=== PATIENT | female | born 1980 | race Caucasian/White ===

== ENCOUNTER → 2021-03-27 17:14 | Outpatient (CLI) | payer SELFPAY ==
[2021-03-27 17:57] LABS: Add Manual Diff / Slide Review NO; Basophils Absolute Auto 0 /uL (0-100); Basophils Percent Auto 0.2 % (0-2); Eosinophils Absolute Auto 100 /uL (0-450); Eosinophils Percent Auto 0.9 % (2-4); Hematocrit 36.1 % (36-46); Hemoglobin 12.4 g/dL (12.0-16.0); Lymphocytes Absolute Auto 1700 /uL (1100-4500); Lymphocytes Percent Auto 22.5 % (25-40); Mean Corpuscular HGB Conc 34.2 % (30-36); Mean Corpuscular Hemoglobin 28.5 PG (26-34); Mean Corpuscular Volume 83.3 fL (80-100); Monocytes Absolute Auto 400 /uL (0-900); Monocytes Percent Auto 5.5 % (3-14); Neutrophils Absolute Auto 5200 /uL (1500-7000); Neutrophils Percent Auto 70.9 % (50-75); Platelet Count 162 X10^3/uL (150-400); Red Blood Cell Count 4.34 X10^6/uL (4.0-5.2); Red Cell Distribution Width 15.2 % (11.6-14.8); White Blood Cell Count 7.4 X10^3/uL (4.5-11.0)
== END ==
PROVIDERS: Referring Provider Obstetrics & Gynecology; Visit Provider Obstetrics & Gynecology
DX: Z34.81 Encounter for supervision of other normal pregnancy, first trimester (principal)
CPT/HCPCS: 36415; 85025; 86850; 86900; 86901

== ENCOUNTER → 2021-04-30 10:42 | Outpatient (CLI) | payer SELFPAY ==
--- NOTE | 2021-04-30 10:44 | DI.US.S_ITS ---
PROCEDURE: US OB >= 14 WEEKS FETUS INDICATIONS: ANATOMY OUTSIDE/PRIOR DATING DATA: Last menstrual period (LMP): Known. LMP-based estimated date of delivery (DAWIT): Unknown. First dating scan (date and location): 11 week 4 day. Estimated date of delivery (DAWIT) from first dating scan: 02/27/2021. TECHNIQUE: Real-time scanning was performed of the fetus, with image documentation and biometric measurements. Endovaginal scanning: None COMPARISON: [facility], OB >= 14 WEEKS FETUS, 03/27/2021, 17:00. [facility], OB >= 14 WEEKS FETUS, 04/23/2021, 17:09. FINDINGS: General: A single living intrauterine gestation is present. Presentation: Breech. Placenta: Placental position is posterior , without previa. Amniotic fluid index: 12.8 cm, normal range is 5-24 cm. heart rate: 137 beats per minute. Maternal cervical canal: 3.2 cm long. Normal lower limit is 2.5 cm. biometrics: Biparietal diameter: 4.7 cm, 20 week 1 day Head circumference: 17.8 cm, 20 week 2 day Abdominal circumference: 16.5 cm, 21 week 4 day Femur length: 3.2 cm, 20 week 0 day Clinically estimated gestational age: 20 week 3 day Composite gestational age from present scan: 20 week 4 day Estimated weight and percentile: 373 g, 62 percentile Anatomic survey: Neuro: Ventricles are non-dilated at less than 10 mm. Cisterna magna is normal at 3-11 mm. Cerebellum is normal in size and morphology. Nuchal skin fold: Normal at less than 6 mm between 14-21 weeks gestational age. Face: Nose and lips, facial profile are normal. Spine: No evidence for spina bifida. Heart: 4-chambered heart is present, with normal ventricular outflow tracts. Diaphragm: Diaphragm is intact. Stomach: Left-sided stomach is present. Kidneys: No hydronephrosis. Normal is less than 5 mm in 2nd trimester, less than 7 mm in 3rd trimester. Cord: 3-vessel cord has orthotopic insertion. Bladder: Normal in size. Extremities: All 4 extremities identified. IMPRESSION: Single live intrauterine consistent with 20 week 4 day gestation. Unremarkable anatomy Approved by: Fernando Carreon M.D. on 04/30/2021 at 13:21
== END ==
PROVIDERS: Referring Provider Obstetrics & Gynecology; Visit Provider Obstetrics & Gynecology
DX: Z34.82 Encounter for supervision of other normal pregnancy, second trimester (principal); Z3A.20 20 weeks gestation of pregnancy
CPT/HCPCS: 76811

== ENCOUNTER → 2021-05-29 11:14 | Outpatient (CLI) | payer SELFPAY ==
[2021-05-29 13:29] LABS: Hematocrit 32.3 % (36-46); Hemoglobin 11.3 g/dL (12.0-16.0)
[2021-05-29 14:08] LABS: GTT (PREG) 1 Hour PP 50gm Dose 98 mg/dL (76-139)
== END ==
PROVIDERS: Referring Provider Obstetrics & Gynecology; Visit Provider Obstetrics & Gynecology
DX: Z34.82 Encounter for supervision of other normal pregnancy, second trimester (principal); Z3A.24 24 weeks gestation of pregnancy
CPT/HCPCS: 36415; 82950; 85014; 85018

== ENCOUNTER → 2021-08-20 12:24 | Outpatient (CLI) | payer SELFPAY ==
[2021-08-21 10:19] LABS: Strep Grp B PCR NEG for Grp B Strep
== END ==
PROVIDERS: PCP Obstetrics & Gynecology; Visit Provider Obstetrics & Gynecology
DX: Z36.85 Encounter for antenatal screening for Streptococcus B (principal); Z3A.37 37 weeks gestation of pregnancy
CPT/HCPCS: 87653

== ENCOUNTER 2021-09-09 10:29 | Outpatient (CLI) | payer SELFPAY | END 2021-09-09 11:49 | disposition home or self-care (01) | LOC: OB 09-10 06:44 | PROVIDERS: PCP Obstetrics & Gynecology; Referring Provider Obstetrics & Gynecology; Visit Provider Obstetrics & Gynecology | DX: O09.523 Supervision of elderly multigravida, third trimester (principal); Z3A.39 39 weeks gestation of pregnancy | CPT/HCPCS: 59025; G0378; G0379 ==

== ENCOUNTER 2021-09-13 08:22 | Outpatient (CLI) | payer SELFPAY ==
--- NOTE | 2021-09-13 08:37 | PM.OBTRLD ---
Visit Information Visit Information Date of evaluation: 09/13/21 Primary OB Provider: Laura Dey On-call OB Provider: Rayo Colin Reason for Evaluation: Yes non-stress test [facility] Medical History (Updated 07/14/21 @ 16:13 by Laura Dey MD) Advanced maternal age (AMA), 40 years or greater Infertility (~2002) Ovarian cyst (~2007) Surgical History (Updated 02/26/21 @ 12:33 by Elvi Chavez, RN) History of third molar tooth extraction Status post dilation and curettage (~09/2012) Family History (Updated 02/26/21 @ 12:42 by Elvi Chavez, RN) Mother Depression Hypertension Father H/O thyroidectomy Grandmother Hypertension Cancer Grandfather Congestive heart failure Arthritis Grandmother Dementia Unknown family medical history Grandfather Unknown family medical history Social History marital status: number of children: 3 household members: spouse and children (2 10 y.o. adopted children & her son Chriss. ) lives independently: Yes caregiver/support person: No housing: house pets and animals: Yes (1 cat, 1 dog: aware/safe.) education level: college (Music education. ) occupational status: unemployed ([employer], also [email or web address] current occupational exposures/hazards: No maico/protestant: Islam special maico needs: Yes (Does not believe in or termination.) seatbelt use: always do you feel safe at home: Yes Smoking Status: Never smoker second hand exposure: No alcohol intake: never substance use type: does not use during the past year weight has: remained stable well-balanced diet: daily or most days daily servings fruits/ve-4 (At least 2) caffeine: Yes (Chocolate. Occasional part of a frappucino. ) Type(s) of exercise: occasional exercise (Follows a video with exercises, only occasionally lately. ) frequency: does not exercise Evaluation Evaluation Baseline heart rate: 125 Variability: Moderate (11-25) monitor accelerations: Present Monitor Decelerations: Episodic Category of Tracing: Reactive Diagnosis, Plan/Disposition Plan/Disposition Plan: Scheduled for induction 09/15. OB Disposition: home
== END 2021-09-13 09:10 | disposition home or self-care (01) ==
LOC: OB 09-15 16:04
PROVIDERS: Referring Provider Obstetrics & Gynecology; Visit Provider Obstetrics & Gynecology
DX: O47.1 False labor at or after 37 completed weeks of gestation (principal); O09.523 Supervision of elderly multigravida, third trimester; Z3A.39 39 weeks gestation of pregnancy
CPT/HCPCS: 59025; G0378; G0379

== ENCOUNTER 2021-09-17 20:02 | Inpatient (IN) | payer SELFPAY ==
[2021-09-17 20:39] VITALS: BP 108/68
[2021-09-17 21:54] LABS: Add Manual Diff / Slide Review NO; Basophils Absolute Auto 0 /uL (0-100); Basophils Percent Auto 0.1 % (0-2); Eosinophils Absolute Auto 100 /uL (0-450); Eosinophils Percent Auto 0.7 % (2-4); Hematocrit 33.4 % (36-46); Hemoglobin 11.5 g/dL (12.0-16.0); Lymphocytes Absolute Auto 1600 /uL (1100-4500); Lymphocytes Percent Auto 18.1 % (25-40); Mean Corpuscular HGB Conc 34.4 % (30-36); Mean Corpuscular Volume 84.3 fL (80-100); Monocytes Absolute Auto 600 /uL (0-900); Monocytes Percent Auto 6.8 % (3-14); Neutrophils Absolute Auto 6500 /uL (1500-7000); Neutrophils Percent Auto 74.3 % (50-75); Platelet Count 158 X10^3/uL (150-400); Red Blood Cell Count 3.97 X10^6/uL (4.0-5.2); Red Cell Distribution Width 14.9 % (11.6-14.8); White Blood Cell Count 8.7 X10^3/uL (4.5-11.0)
[2021-09-17 21:59] LABS: COVID19 -Nasal RAPID Negative (Negative)
[2021-09-17] MEDS: DINOPROSTONE VAG (CERVIDIL) 10 MG VAG (22:03)
[2021-09-17] MEDS: LACTATED RINGERS 1,000 ML 100 ML IV (23:10)
[2021-09-18] MEDS: OXYTOCIN PREMIX 30 UNIT/500 ML PLAST..BAG IV (11:54)
[2021-09-18] MEDS: LACTATED RINGERS 1,000 ML 100 ML IV ×2 (11:54→21:09)
--- NOTE | 2021-09-18 11:59 | PM.OBHP.IH.1 ---
OB HPI Date/Time Date of admission: 09/17/21 Date Patient Seen: 09/18/21 Time Patient Seen: 07:30 History of Present Condition Chief complaint: induction DAWIT Calculator Estimated Delivery Date Method Current WG Current Estimate 09/14/21 Ultrasound #1 40w 4d Other Estimates 09/22/21 LMP (Uncertain) 39w 3d Estimated Gestational Age (weeks): 40+4 : 4 Para: 1 care: good care, initiated at week # (11), number of visits (12) and pounds weight gain (33) Dating criteria OB: LMP confirmed by 1st trimester US Ultrasounds: normal 1st trimester US and normal mid trimester US Obstetrical complications: none Medical complications OB: none Indications Indication for induction OB: other (AMA) and post dates Preadmission Labs Last OB Lab Results: Blood Type A Positive 09/17/21 21:09/17/21 Antibody Screen Negative 09/17/21 21:15 09/17/21 Hematocrit 33.4 % (36-46) L 09/17/21 21:15 09/17/21 Hemoglobin 11.5 g/dL (12.0-16.0) L 09/17/21 21:15 09/17/21 Glucose 1 Hour 98 mg/dL (76-139) 05/29/21 11:23 05/29/21 Group B Streptococcus (PCR) Neg for grp b strep 08/20/21 12:24 08/20/21 -: Chlamydia screen: negative, Gonorrhea screen: negative and Urine: negative -: PAP smear: Normal External Labs -: Urine: negative Prior (ies) Past Pregnancies Del. Date GA/Weeks Labor Lgth Wt Sex Route Outcome Anesthesia Place Delv Breastfeed Preg Comp Name 10/14/12 10 spontaneous spontaneous 08/21/15 40 3 8 lb Male vaginal live - full term none IH Dr. Dey 18 mos. none Chriss 04/26/17 5 spontaneous spontaneous Delivery Date: 10/14/12 Last Updated by: Elvi Chavez R.N. D&C suction. Delivery Date: 08/21/15 Last Updated by: Elvi Chavez R.N. Small tear with repair. No issues. Delivery Date: 04/26/17 Last Updated by: Elvi Chavez R.N. Chemical Evaluation Evaluation Baseline heart rate: 135 Variability: Moderate (11-25) monitor accelerations: Present Monitor Decelerations: Variable Contraction Frequency (minutes): 15 Uterine Contraction Intensity: Moderate Status: Category ll Dilation (cm): 2 Effacement (%): 80 Dilation: 1-2 cm Effacement: >/=80% station: 0 Position of cervix: mid Consistency: soft Spaulding score: 9 [facility] Medical History (Updated 07/14/21 @ 16:13 by Laura Dey MD) Advanced maternal age (AMA), 40 years or greater Infertility (~2002) Ovarian cyst (~2007) Surgical History (Updated 02/26/21 @ 12:33 by Elvi Chavez RN) History of third molar tooth extraction Status post dilation and curettage (~09/2012) Family History (Updated 02/26/21 @ 12:42 by Elvi Chavez RN) Mother Depression Hypertension Father H/O thyroidectomy Grandmother Hypertension Cancer Grandfather Congestive heart failure Arthritis Grandmother Dementia Unknown family medical history Grandfather Unknown family medical history Social History marital status: number of children: 3 household members: spouse and children (2 10 y.o. adopted children & her son Chriss. ) lives independently: Yes caregiver/support person: No housing: house pets and animals: Yes (1 cat, 1 dog: aware/safe.) education level: college (Music education. ) occupational status: unemployed ([employer], also [employer] current occupational exposures/hazards: No maico/rastafari: [employer]beterian special maico needs: Yes (Does not believe in or termination.) seatbelt use: always do you feel safe at home: Yes Smoking Status: Never smoker second hand exposure: No alcohol intake: never substance use type: does not use during the past year weight has: remained stable well-balanced diet: daily or most days daily servings fruits/ve-4 (At least 2) caffeine: Yes (Chocolate. Occasional part of a frappucino. ) Type(s) of exercise: occasional exercise (Follows a video with exercises, only occasionally lately. ) frequency: does not exercise Meds Home Medications and Allergies Home Medications Medication Instructions Recorded Confirmed Type progesterone micronized 100 mg 100 mg PO [facility] #90 cap 01/30/21 09/17/21 Rx capsule prenat.vits,woo,fkz-imri-jlaba 1 tab PO DAILY 02/26/21 09/17/21 History Allergies Allergy/AdvReac Type Severity Reaction Status Date / Time No Known Drug Allergies Allergy Verified 09/17/21 20:39 OB Exam Narrative Exam Narrative: Generally: Patient in mild distress secondary to contractions Lungs: Clear to auscultation bilaterally Cardiovascular: Regular rate and rhythm Abdomen: Gravid Fundal height: 41 cm Estimated weight: 8 lb Extremities: Trace edema, 1+ DTRs Objective Labs Result Diagrams: 09/17/21 21:15 Labs: Laboratory Results - last 24 hr 09/17/21 09/17/21 09/17/21 21:15 21:15 21:15 WBC 8.7 RBC 3.97 L Hgb 11.5 L Hct 33.4 L MCV 84.3 MCH 29.0 MCHC 34.4 RDW 14.9 H Plt Count 158 Neut % (Auto) 74.3 Lymph % (Auto) 18.[address] % (Auto) 6.8 Eos % (Auto) 0.7 L Baso % (Auto) 0.1 Neut # (Auto) 6500 Lymph # (Auto) 1600 [facility] # (Auto) 600 Eos # (Auto) 100 Baso # (Auto) 0 SARS-CoV-2 (PCR) Negative Blood Type A Positive Antibody Screen Negative Assessment and Plan Assessment and Plan Assessment and Plan narrative: Assessment: 41-year-old 4 para 1 at 40 and 4/7 weeks gestation status post Cervidil x1 last evening Favorable cervix Advanced maternal age GBS negative Plan: Pitocin per protocol 2 Artificial rupture of membranes when able Epidural as needed Expected management to spontaneous vaginal delivery Time Spent with Patient Total time spent with greater than 50% in coordination of care (as documented) at patient's floor/unit and/or counseling patient:: 15-24 minutes
--- NOTE | 2021-09-18 17:46 | PM.OBPNLAB ---
Date/Time Date Patient Seen: 09/18/21 Time Patient Seen: 13:15 Pain Control Pain control: tolerating well Pelvic Exam Dilation (cm): 2 Effacement (%): 80 station: 0 Amniotic membrane status: Intact Contractions Contractions on admission: none Monitor mode: External Pitocin rate (mU/min): 5 Contraction frequency (min): 3 Contraction duration (min): 1 Contraction pattern: Regular Contraction intensity: Moderate Status status: Category ll Heart Rate Baseline: 135 Monitor Accelerations: Present Monitor Decelerations: Late and Variable Monitor Variability: Moderate Assessment and Plan Assessment: induction ongoing Plan: continuous present management Comments: Leave Pitocin off for at least 30min Then restart Discussed possible need for primary C section
--- NOTE | 2021-09-18 17:47 | PM.OBPNLAB ---
Date/Time Date Patient Seen: 09/18/21 Time Patient Seen: 17:47 Pain Control Pain control: tolerating well Pelvic Exam Dilation (cm): 2 Effacement (%): 80 station: 0 Amniotic membrane status: Intact Contractions Contractions on admission: none Monitor mode: External Pitocin rate (mU/min): 0 Contraction frequency (min): 4 Contraction duration (min): 1 Contraction pattern: Regular Contraction intensity: Moderate Status status: Category ll Heart Rate Baseline: 135 Monitor Accelerations: Present Monitor Decelerations: Late Monitor Variability: Minimal Assessment and Plan Plan: Comments: Discussed with the patient and her that the baby is not tolerating labor. They would like to proceed with primary section. The risks, benefits, and alternatives to the procedure were explained to the patient. The risks including bleeding, infection, injury to the bowel, bladder, or ureters. She understands these risks and agrees to proceed. A full par Q was held and consent form was signed.
--- NOTE | 2021-09-18 17:49 | PM.PREOP ---
Pre-operative Note COVID-19 COVID-19 status: Negative Result date/Date tested (Pos, Neg/Pending): 09/17/21 Criteria for continued procedure: Delay expected to result in less-positive ultimate med/surg outcome Interval Note History & Physical reviewed/Exam performed by Physician: Yes Changes to H&P: No H&P completed within 30 days and has changed as indicated here:: 09/18/21
[2021-09-18] MEDS: CEFAZOLIN 2 GM/20 ML SYRINGE IV (18:05)
[2021-09-18] MEDS: ACETAMINOPHEN IV 1,000 MG/100 ML VIAL 400 MG IV (18:15)
--- NOTE | 2021-09-18 18:21 | SUR.OPER ---
Supine on Padded OR bed, head on pillow, safety belt at thigh, arms secured on padded arm boards at <90 degrees abduction. Bump under right buttock. Legs uncrossed with pillow under knees, gel pad to heels, tape over blanket to lower legs.
--- NOTE | 2021-09-18 18:52 | SUR.OPER ---
Viable baby boy born at 1825. Cord blood and placenta given to Franci Banerjee RN.
[2021-09-18 19:06] VITALS: BP 107/63; PULSE 82; RESP 15; TEMP 37.1; O2SAT 100
[2021-09-18 19:10] VITALS: BP 105/61; PULSE 73; RESP 15; O2SAT 100
[2021-09-18 19:15] VITALS: BP 97/62; PULSE 74; RESP 12; O2SAT 100
[2021-09-18] MEDS: KETOROLAC 30 MG/ML VIAL IV (19:15)
[2021-09-18 19:22] VITALS: BP 101/64; PULSE 75; RESP 16; O2SAT 99
--- NOTE | 2021-09-18 19:27 | PM.OBCS.1 ---
Operative Date/Time/Diagnoses Date of procedure: 09/18/21 Time of procedure: 19:27 Pre-op diagnosis: 40+ 4 weeks gestation intolerance of labor Advanced maternal age Post-op diagnosis: same Procedure & Clinicians Procedure: Primary low-transverse section Same procedure as scheduled: Yes Indications: intolerance of labor 40+ 4 weeks gestation Surgeon: Laura Rosario Yes if Unassisted: No Bull Bucker: Andreia Swain Reason for Bull Bucker: The critical care physician assistant was necessary for entry into the abdomen and uterus with retraction. She assisted with delivery of the infant. She is cyst did with closure of the uterus with retraction and clipping of suture. She closed the contralateral fascia. Anesthesia Type: Spinal Operative Notes Findings: Live male in the OA presentation Grade 3 placenta Normal tubes and ovaries Normal uterus Closure Type: primary Specimen(s): cord blood and placenta Intraoperative meds administered: Acetaminophen, Duramorph, Ketorolac and Pitocin Applied: Catheter (To continuous drainage) Estimated Blood Loss (mL): 650 Blood products transfused: none Procedure in detail: The patient was taken to the operating room where she was placed in the seated position. Spinal anesthesia with Duramorph was administered. She was then placed in the dorsal supine position with a leftward tilt. She was prepped and draped in the usual sterile fashion. A timeout was performed. After spinal analgesia was found to be adequate, a Pfannenstiel skin incision was made 2 fingerbreadths above the pubic symphysis and carried through to the underlying layer fascia. The fascia was nicked in the midline, and the incision extended bilaterally with the Willett scissors. The superior aspect of the fascial incision was grasped with a [place] clamps, elevated, and the underlying rectus muscles dissected off sharply and bluntly. Attention was then turned to the inferior aspect of this incision which in a similar fashion was grasped with a Kourtney clamps, elevated, and the underlying rectus muscles dissected off sharply and bluntly. The rectus muscles were in the midline. The peritoneum was identified, grasped between 2 hemostats, and entered sharply with the Metzenbaum scissors. This incision was extended superiorly and inferiorly with good visualization of the bladder. The bladder blade was inserted. The vesicouterine peritoneum was identified, grasped with the pickup, and entered sharply with the Metzenbaum scissors. This incision was extended bilaterally, and the bladder flap was created digitally. The bladder blade was reinserted. The lower uterine segment was incised in a transverse fashion with the scalpel. Upon entering the amniotic sac there was a small amount of clear amniotic fluid. The infant's head was delivered with vacuum assistance. The remainder of the body delivered without difficulty. The cord was double clamped and cut. The infant was handed off to waiting RN and RT. The placenta was delivered manually. The uterus was cleared of all clots and debris. The uterine incision was repaired with #1 chromic in a running interlocking fashion, and a second layer the same suture was used for an imbricating layer. Hemostasis was achieved. The tubes and ovaries were examined and were found to be normal. The gutters were cleared of all clots and debris. The bladder flap was reapproximated using 2-0 Vicryl in a running fashion. The parietal peritoneum was closed using 2-0 Vicryl in a running fashion. The fascia was reapproximated using 0 Vicryl in a running fashion. Subcutaneous layer was copiously irrigated with warm normal saline. 5 simple interrupted sutures of 3-0 Vicryl were placed to reapproximate the subcutaneous layer. The skin was closed with 4-0 Monocryl in a subcuticular fashion. Steri-Strips were placed. An Aquacel dressing was placed. The uterus was expressed of a small amount of old blood. Sponge, lap, and instrument counts were correct x 2. The patient tolerated the procedure well, and was taken to PACU in stable condition. Complications: none Harmans Baby 1: Gender: Male Presentation: vertex Position: Right Occiput Anterior Placental Delivery Description: Manual Removal Cord Vessel Description: 3 Vessels score (1 min): 8 score (5 min): 9 weight: 7 lb 8.5 oz Post-operative Condition: stable Disposition: PACU Aftercare: routine postop
[2021-09-19] MEDS: IBUPROFEN 600 MG TABLET PO ×2 (01:06→21:02)
[2021-09-19] MEDS: KETOROLAC 30 MG/ML VIAL IV ×3 (01:06→14:45)
[2021-09-19 07:10] LABS: Hematocrit 28.7 % (36-46); Hemoglobin 9.8 g/dL (12.0-16.0)
[2021-09-19 08:31] VITALS: TEMP 36.3
[2021-09-19] MEDS: DOCUSATE 100 MG CAPSULE 200 MG PO (08:33)
[2021-09-19] MEDS: PRENATAL VIT,CALC/IRON/FOLIC 1 TABLET 1 TAB PO (08:34)
[2021-09-19] MEDS: OXYCODONE IR 5 MG TABLET PO ×3 (08:35→19:38)
[2021-09-19] MEDS: ACETAMINOPHEN 325 MG TABLET 650 MG PO (13:06)
--- NOTE | 2021-09-19 16:05 | PM.OBPN.1 ---
Subjective - OB Subjective Patient comments: no complaints, pain well controlled, tolerating diet and flatus present baby status: doing well and nursing well [place] feeding status: exclusively breast feeding Date Patient Seen: 09/19/21 Time Patient Seen: 13:30 Exam Vital Signs (past 8 hours): - 09/19/21 08:31 Temperature 97.3 F L Oxygen Delivery Method Room Air Narrative Exam Narrative: Generally: Patient is sitting up in bed, no acute distress Lungs: Clear to auscultation bilaterally Cardiovascular: Regular rate and rhythm Fundus: Firm at U-1 Incision: Clean dry and intact with Aquacel dressing Extremities: Trace edema, negative Homans Objective Labs Result Diagrams: 09/19/21 06:06 Labs: Laboratory Results - last 24 hr 09/19/21 06:06 Hgb 9.8 L Hct 28.7 L Assessment & Plan Plan day: 1 plan OB: routine postop care Time Spent With Patient Time: Total time spent is greater than 50% in coordination of care (as documented) at patient's floor/unit and/or counseling patient: Time with patient: 15-24 minutes
[2021-09-20] MEDS: ACETAMINOPHEN 325 MG TABLET 650 MG PO ×2 (01:46→10:35)
[2021-09-20] MEDS: IBUPROFEN 600 MG TABLET PO ×2 (03:05→10:35)
--- NOTE | 2021-09-20 08:03 | PM.OBDS.1 ---
Discharge Providers Provider Date of admission: 09/17/21 20:02 Discharge Date: 09/20/21 Primary care physician: Laura Dey MD Consults: 09/17/21 20:26 Consult to Anesthesiology Urgent Comment: Consulting Provider: Rayo Colin Reason for consultation: Intrapartum ANITA placement Has provider been notified: No 09/18/21 19:28 Consult to Child And Family Services Specialist Routine Comment: Discharge provider: Laura Dey MD Summary Hospital Course Date Patient Seen: 09/20/21 Time Patient Seen: 08:03 Diagnoses: 40-,4/7 weeks gestation Advanced maternal age Cervical ripening with Cervidil Pitocin induction of labor intolerance of labor Hospital Course: Patient is a 41-year-old 4 para 2 022 who presented on September 17, 2021 for cervical ripening with Cervidil. She received 1 Cervidil. On September 18, 2021 Pitocin was started. There were late decelerations with Pitocin contractions. The Pitocin was discontinued periodically. Every time the Pitocin was restarted, the baby would have late decelerations. A decision was made to proceed with a primary low-transverse section. She underwent this procedure without complication. Her postoperative course was unremarkable. She has voided without the catheter. Her pain is well controlled. She is tolerating a diet. No nausea or vomiting. She is ambulating independently. She is discharged home to follow-up at 1 week for an Aquacel dressing removal Peripartum Data Infant Delivery Method: Emergency Section Laceration Description: None Episiotomy description: None Procedures: Cervidil cervical ripening Pitocin induction of labor Spinal anesthesia Primary low-transverse section complications: none 1: Gender: Male Status at Discharge Functional status at discharge: independent ambulation Overall status at discharge: patient is progressing back to baseline Time Spent with Patient Time attestation: Total time spent providing and/or coordinating discharge services: Time spent: Less than 30 minutes Objective Labs Result Diagrams: 09/19/21 06:06 Exam Vital Signs (past 8 hours): Oxygen Delivery Method Room Air Narrative Exam Narrative: Generally: Patient is sitting up in bed, holding infant, no acute distress Lungs: Clear to auscultation bilaterally Cardiovascular: Regular rate and rhythm Abdomen: Soft and flat. Fundus: Firm at U-2 Incision: Clean dry and intact with Aquacel dressing Extremities: Trace edema, negative Homans Discharge Plan Discharge Plan Patient Disposition: Home Provider Discharge Comment: Call with fever, chills, or redness or drainage around the incision Call with bleeding more than a pad in an hour Tylenol 650 mg every 6 hours as needed Ibuprofen 600 mg every 6 hours as needed Stool softener as needed Discharge orders & Medications Prescriptions: New oxycodone 5 mg tablet 5 mg PO Q4H PRN (Reason: pain) Qty: 30 0RF Continued prenat.vits,woo,phc-[id number] Tablet 1 tab PO DAILY 0RF Discontinued progesterone micronized 100 mg capsule 100 mg PO QAM Qty: 90 0RF Follow up/Referrals: Laura Dey MD [Primary Care Provider] - 1 Week (1 week follow up- September 25 @ 1:45pm 6 week follow up- October 05 @ 11:00am) Diet/Activity/Treatments Diet: Regular Activity: No heavy lifting. No lifting more than the baby for the first 2 weeks Skin/Wound/Dressing Care Report to your healthcare provider any signs of infection, such as:: chills, fever, increased pain, unusual drainage and unusual redness Dressing: Do not remove Visit Report/Discharge Packet Instructions: DI for , DI for Prescription Opioid Use Discharge Data Primary Care Provider: Laura Dey
[2021-09-20 09:04] VITALS: BP 104/64; PULSE 88; RESP 17; TEMP 36.6
[2021-09-20 09:14] VITALS: BP 104/64; PULSE 88; RESP 17; TEMP 36.6
[2021-09-20] MEDS: DOCUSATE 100 MG CAPSULE 200 MG PO (10:31)
[2021-09-20] MEDS: PRENATAL VIT,CALC/IRON/FOLIC 1 TABLET 1 TAB PO (10:34)
[2021-09-20] MEDS: LANOLIN OINT 7 GM 1 APPLIC TOP (10:36)
== END 2021-09-20 10:50 | disposition home or self-care (01) | DRG 788 ==
PROVIDERS: Admitting Provider Obstetrics & Gynecology; PCP Obstetrics & Gynecology; Referring Provider Obstetrics & Gynecology; Visit Provider Obstetrics & Gynecology
PROC: 10D00Z1 Extraction of Products of Conception, Low, Open Approach (ICD-10-PCS; CPT 59514; principal; 2021-09-18 15:15)
DX: O48.0 Post-term pregnancy (principal); O77.9 Labor and delivery complicated by fetal stress, unspecified; Z3A.40 40 weeks gestation of pregnancy; Z37.0 Single live birth
CPT/HCPCS: 36415; 59050; 59200; 59510; 59514; 85014; 85018; 85025; 86850; 86900; 86901; 87635; C9803; G0379; J0131; J0690; J1885; J2274; J2590; J3010